=== PATIENT | male | born 1985 | race Caucasian/White ===

== ENCOUNTER → 2019-10-29 | Outpatient (CLI) | payer OTHER | LOC: LAB 17:27 → LAB SHORT 17:27 | DX: R06.00 Dyspnea, unspecified (principal) | CPT/HCPCS: U0002 ==

== ENCOUNTER 2023-04-19 21:32 | Emergency (ER) | payer SELFPAY ==
[~2023-04-19] VITALS: Ht 182.9 cm; Wt 113.4 kg
[2023-04-19 22:30] LABS: BASOPHILS ABSOLUTE AUTO 0.04 K/mm3 (0.00-0.23); BASOPHILS PERCENT AUTO 0 % (0-2); EOSINOPHILS PERCENT AUTO 1 % (0-6); Hematocrit 43.2 % (37.0-53.0); IMMATURE GRAN ABSOLUTE AUTO 0.05 K/mm3 (0.00-0.10); IMMATURE GRAN PERCENT AUTO 0 % (0-1); LYMPHOCYTES ABSOLUTE AUTO 2.49 K/mm3 (0.84-5.20); LYMPHOCYTES PERCENT AUTO 21 % (21-46); MONOCYTES PERCENT AUTO 8 % (4-13); Mean Corpuscular HGB Conc 34.7 g/dL (31.5-36.5); Mean Corpuscular Volume 89 fL (80-100); Mean Platelet Volume 10.4 fL (9.1-12.4); NEUTROPHILS PERCENT AUTO 70 % (41-73); Platelet Count 307 K/mm3 (150-400); RDW Coefficient Variation 11.9 % (11.7-14.2); RDW Standard Deviation 38.7 fL (35.1-46.3); Red Blood Cell Count 4.84 M/mm3 (4.30-5.90); White Blood Cell Count 11.78 K/mm3 (4.00-11.30)
[2023-04-19 22:52] LABS: Albumin, Blood 4.1 g/dL (3.4-5.0); Albumin/Globulin Ratio 1.4 (0.8-1.8); Bilirubin, Total 1.1 mg/dL (0.1-1.0); Bun/Creatinine Ratio 16.2 (12.0-20.0); Calcium, Blood 9.1 mg/dL (8.5-10.1); Creatinine, Blood 0.99 mg/dL (0.60-1.20); Potassium, Blood 3.6 mmol/L (3.5-5.5); Total Protein, Blood 7.1 g/dL (6.4-8.2)
[2023-04-20] MEDS ORDERED: ACET500 PO (01:30)
[2023-04-20] MEDS ORDERED: Ibuprofen600 MG PO (01:30)
[2023-04-20 02:30] VITALS: BP 134/93
== END 2023-04-20 02:00 | disposition home or self-care (01) ==
LOC: ER 21:32
PROVIDERS: Student in an Organized Health Care Education/Training Program
DX: S32.029A Unspecified fracture of second lumbar vertebra, initial encounter for closed fracture (principal); S32.039A Unspecified fracture of third lumbar vertebra, initial encounter for closed fracture; S32.049A Unspecified fracture of fourth lumbar vertebra, initial encounter for closed fracture; S30.0XXA Contusion of lower back and pelvis, initial encounter; W17.89XA Other fall from one level to another, initial encounter; F17.200 Nicotine dependence, unspecified, uncomplicated
CPT/HCPCS: 70450; 71260; 72125; 73030; 73560-LT; 73560-RT; 74177; 80053; 85025; 86850; 86900; 86901; 90471; 90715; 93005; 93010; 96365; 96375; 99284-25; A9270; J0690; J1885; J3010; J7030; L0160; Q9967

== ENCOUNTER 2024-10-26 08:07 | Day surgery (SDC) | payer OTHER ==
[2024-10-26] VITALS (11 sets, daily range): BP systolic 104–149; BP diastolic 62–99
[~2024-10-26] VITALS: Ht 192.5 cm; Wt 138.0 kg
[~2024-10-26 08:07] MED LIST: ACET500 PO; CeFAZolin Sodium 3,000 MG in NS 100 ML IV SCH; FentaNYL Citrate 50 MCG/ML 2 ML Injection ONE; Ibuprofen600 MG PO; Lactated Ringer's 1,000 ML IV SCH; Midazolam HCl 1MG / ML 2ML Vial ONE; Sugammadex Sodium 200 MG/2ML SDV (100 MG/ML) ONE; propofoL 20 ML IV ONE
[2024-10-26] MEDS ORDERED: Bupivacaine 0.5% HCl 5 MG/ML 30MLVIAL ONE (08:57)
[2024-10-26] MEDS ORDERED: propofoL 20 ML IV ONE ×2 (09:04→10:21)
[2024-10-26] MEDS ORDERED: Ipratropium/Albuterol SulF 2.5-0.5MG/3 ML Amp ONE (09:07)
[2024-10-26] MEDS ORDERED: Ondansetron HCl 2 MG / ML 2ML Vial ONE (09:09)
[2024-10-26] MEDS ORDERED: Rocuronium Bromide 10 MG/ML 5ML Injection IV ONE ×2 (09:09→10:22)
[2024-10-26] MEDS ORDERED: Dexamethasone Sod Phos 10 MG/ML 1ML VIAL ONE (09:09)
--- NOTE | 2024-10-26 09:31 | NUR ---
History, Chart, Medications and Allergies reviewed before start of procedure. Patient up to Ambulate independently. Gait steady. Pre-Op teaching done. Pt verbalizes understanding. Patient confirms NPO status and agrees with scheduled surgery. Patient reports completing Chlorhexadine shower X2 prior to admission to hospital. Surgical site prepped with 2% Chlorhexidine cloth wipe. Lungs clear to Auscultation in all lobes with the exception of inspiratory wheeze in RUL. Patient States Post-Procedure ride home has been arranged.
--- NOTE | 2024-10-26 09:32 | NUR ---
Wedding ring placed in labeled cup & given to spouse.
[2024-10-26] MEDS ORDERED: Labetalol HCL 5 MG/ML 4ML Injection (Single Dose) IV PRN (09:55)
[2024-10-26] MEDS ORDERED: HYDROmorphone HCl/Pf 1MG SYR IV PRN ×2 (09:55→10:00)
[2024-10-26] MEDS ORDERED: Ondansetron HCl 2 MG / ML 2ML Vial IV PRN (09:55)
[2024-10-26] MEDS ORDERED: Metoclopramide HCl 5MG / ML 2ML Vial IV PRN (09:55)
[2024-10-26] MEDS ORDERED: ePHEDrine Sulfate 50 MG/ML 1ML Injection IV PRN (10:00)
[2024-10-26] MEDS ORDERED: FentaNYL Citrate 50 MCG/ML 2 ML Injection IV PRN ×2 (10:00)
[2024-10-26] MEDS ORDERED: Atropine Sulfate 0.1 MG/ML 10ML SYR IV PRN (10:00)
[2024-10-26] MEDS ORDERED: HYDROmorphone HCl/Pf 1MG SYR ONE ×2 (10:03→12:31)
[2024-10-26] MEDS ORDERED: Ketorolac Tromethamine 30mg Vial ONE (10:05)
[2024-10-26] MEDS ORDERED: Sugammadex Sodium 200 MG/2ML SDV (100 MG/ML) ONE (10:36)
[2024-10-26] MEDS ORDERED: Ipratropium/Albuterol SulF 2.5-0.5MG/3 ML Amp INH ONE (11:25)
[2024-10-26] MEDS ORDERED: FentaNYL Citrate 50 MCG/ML 2 ML Injection ONE (11:45)
[2024-10-26] MEDS ORDERED: HYDROcodone 5-APAP 325 TAB PO PRN (12:15)
--- NOTE | 2024-10-26 12:57 | NUR ---
PT DENIES PAIN AT THIS TIME. PT GIVEN COFFEE, CRACKERS, PUDDING AND APPLE JUICE.
--- NOTE | 2024-10-26 13:16 | NUR ---
Discharge instructions reviewed with patient. Patient verbalizes understanding. Copy given to patient to take home. DRESSING CLEAN DRY AND INTACT. Patient States Post-Procedure ride home has been arranged. Discharged via wheelchair to private car for ride home.
== END 2024-10-26 13:18 | disposition home or self-care (01) ==
LOC: ORSCMMR 08:07 → ORD 09:00 → ORSCMMR 13:18
PROVIDERS: Surgery
PROC: 0YU50JZ Supplement Right Inguinal Region with Synthetic Substitute, Open Approach (ICD-10-PCS; principal; 2024-10-26 09:00)
DX: K40.30 Unilateral inguinal hernia, with obstruction, without gangrene, not specified as recurrent (principal); F17.210 Nicotine dependence, cigarettes, uncomplicated; E66.9 Obesity, unspecified; Z68.37 Body mass index [BMI] 37.0-37.9, adult
CPT/HCPCS: 82947; C1781; J0690; J1100; J1171; J1885; J2250; J2405; J2704; J3010; J7120

== ENCOUNTER → 2025-06-13 | Outpatient (CLI) | payer SELFPAY ==
[~2025-06-13] MED LIST changes: -CeFAZolin Sodium 3,000 MG in NS 100 ML IV SCH; -FentaNYL Citrate 50 MCG/ML 2 ML Injection ONE; -Lactated Ringer's 1,000 ML IV SCH; -Midazolam HCl 1MG / ML 2ML Vial ONE; -Sugammadex Sodium 200 MG/2ML SDV (100 MG/ML) ONE; -propofoL 20 ML IV ONE
== END ==
LOC: LAB 18:35 → LAB SHORT 18:35
DX: Z23 Encounter for immunization (principal); L03.012 Cellulitis of left finger
CPT/HCPCS: 87070; 87077; 87147; 87186; 87205